=== PATIENT | female | born 1970 | race Caucasian/White ===

== ENCOUNTER 2018-10-02 15:27 | Emergency (ER) | payer OTHER ==
[~2018-10-02] VITALS: Ht 167.6 cm; Wt 97.9 kg
[2018-10-02 15:38] VITALS: Ht 167.6 cm; Wt 97.9 kg
--- NOTE | 2018-10-02 16:13 | ERD ---
ER Documentation Chief Complaint Chief Complaint HEADACHE, DIZZINESS HPI The patient is a 48-year-old female, presenting to the ER because she has had intermittent dizziness/headache since 2 PM yesterday, denies similar symptoms previously, symptoms previously, she is under a lot of stress at work. Denies syncope, near syncope, facial pain, neck pain, chest pain, dyspnea, abdominal pain, vomiting, complains of constipation. She does not smoke or drink Past medical history: Hypertension, diabetes mellitus, dyslipidemia, anxiety Past surgical history: Tubal Ligation ROS All systems reviewed and are negative except as per history of present illness. Medications Home Meds Active Scripts Meclizine Hcl* (Antivert*) 12.5 Mg Tab, 25 MG PO Q6H PRN for DIZZINESS, #20 TAB Prov:YUVAL MELO MD 10/02/18 Amoxicillin* (Amoxicillin*) 500 Mg Cap, 500 MG PO TID for 7 Days, CAP Prov:YUVAL MELO MD 10/02/18 Reported Medications Insulin Degludec (Tresiba Flextouch U-100) 100 Unit/1 Ml Insuln.pen, 50 UNIT SQ QHS 10/02/18 Insulin Lispro (Humalog Kwikpen U-100) 100 Unit/1 Ml Insuln.pen, 50 UNIT SQ WITH MEALS, EA 10/02/18 Gabapentin* (Gabapentin*) 300 Mg Capsule, 600 MG PO BID, #60 CAP 10/02/18 Famotidine* (Famotidine*) 20 Mg Tablet, 20 MG PO DAILY, #30 TAB 10/02/18 Gemfibrozil* (Gemfibrozil*) 600 Mg Tablet, 600 MG PO BID, TAB 10/02/18 Atorvastatin* (Atorvastatin*) 40 Mg Tablet, 40 MG PO QHS, #30 TAB 10/02/18 Sitagliptin Phos/Metformin HCl (Janumet 50-1,000 mg Tablet) 1 Each Tablet, 1 EACH PO BID, TAB 10/02/18 Losartan Potassium* (Losartan Potassium*) 50 Mg Tablet, 50 MG PO BID, TAB 10/02/18 Allergies Allergies: Coded Allergies: No Known Allergy (Unverified , 10/02/18) Physical Exam Vitals Vital Signs Date Temp Pulse Resp B/P (MAP) Pulse Ox O2 O2 Flow FiO2 Time Delivery Rate 10/02/18 77 16 134/74 98 Room Air 22:22 (94) 10/02/18 98.7 91 16 134/98 98 Room Air 18:04 (110) 10/02/18 98.7 102 16 181/119 98 Room Air 16:18 (139) 10/02/18 98.7 105 18 250/116 98 15:38 (160) Physical Exam Const: No acute distress. Head: Atraumatic. Eyes: Normal Conjunctiva. ENT: Normal External Ears, Nose and Mouth. Neck: Full range of motion. No meningismus. Resp: Clear to auscultation bilaterally. Cardio: Regular rate and rhythm. Abd: Soft, non distended, normal bowel sounds, non tender. Skin: No petechiae or rashes. Back: No midline or flank tenderness. Ext: No cyanosis, or edema. Neur: Awake and alert. No focal deficit Psych: Anxious Result Diagram: 10/02/18 1718 10/02/18 1718 Results 24 hrs Laboratory Tests Test 10/02/18 17:18 10/02/18 17:26 10/02/18 19:37 10/02/18 21:02 White Blood Count 9.6 10^3/ul Red Blood Count 4.75 10^6/ul Hemoglobin 13.4 g/dl Hematocrit 39.5 % Mean Corpuscular 83.2 fl Volume Mean Corpuscular 28.2 pg Hemoglobin Mean Corpuscular 33.9 g/dl Hemoglobin Concent Red Cell Distribution 12.6 % Width Platelet Count 325 10^3/UL Mean Platelet Volume 11.6 fl Immature Granulocytes 1.000 % % Neutrophils % 61.8 % Lymphocytes % 29.1 % Monocytes % 6.9 % Eosinophils % 0.8 % Basophils % 0.4 % Nucleated Red Blood 0.0 /100WBC Cells % Immature Granulocytes 0.100 10^3/ul # Neutrophils # 5.9 10^3/ul Lymphocytes # 2.8 10^3/ul Monocytes # 0.7 10^3/ul Eosinophils # 0.1 10^3/ul Basophils # 0.0 10^3/ul Nucleated Red Blood 0.0 10^3/ul Cells # Sodium Level 129 mmol/L Potassium Level 4.0 mmol/L Chloride Level 91 mmol/L Carbon Dioxide Level 25 mmol/L Anion Gap 13 Blood Urea Nitrogen 17 mg/dl Creatinine 0.74 mg/dl Est Glomerular Filtrat > 60 mL/min Rate mL/min Glucose Level 601 mg/dl Calcium Level 10.0 mg/dl Troponin I < 0.012 ng/ml POC Beta HCG, NEGATIVE Qualitative Bedside Glucose 423 mg/dL 397 mg/dL Current Medications Medications Dose Sig/Nadeen Start Time Status Last (Trade) Ordered Route PRN Stop Time Admin Dose Reason Admin Meclizine 25 mg ONCE ONCE 10/02/18 DC 10/02/18 HCl PO 17:30 10/02/18 18:01 (Antivert) 17:31 Sodium 1,000 ml @ Q1H ONCE 10/02/18 DC 10/02/18 Chloride 1,000 mls/hr IV 18:00 10/02/18 18:01 18:59 Insulin 10 unit ONCE ONCE 10/02/18 DC 10/02/18 Human SC 20:30 10/02/18 20:22 Lispro 20:31 (Humalog) Diagnostic 1 ea 2 HRS AFTER 10/02/18 DC 10/02/18 Test (Pha) HUMALOG ONCE 20:30 10/02/18 21:03 (Accu-Chek) XX 20:31 Procedures/[place] [id number] Radiology Main Line: [phone] DIAGNOSTIC IMAGING REPORT Patient: LOUIS ALVES : 1970 Age: 48 Sex: F MR #: [id number] DOS: 10/02/18 1703 Ordering MD: YUVAL MELO MD Location: E/R Room/Bed: PROCEDURE: Noncontrast CT Head. CLINICAL INDICATION: Dizziness. TECHNIQUE: Noncontrast CT of the head was obtained. The administered radiation dose was CTDI vol = 39.64 mGy, DLP = 624.23 mGy-cm. One or more of the following dose reduction techniques were used: Automated exposure control, Adjustment of the mA and/or kV according to patient size, or Use of iterative reconstruction technique. DICOM images are available. COMPARISON: Noncontrast CT of the head from December 14, 2016. FINDINGS: The ventricles and sulci are within normal limits. There is a coarse calcification within the right frontal lobe suggesting prior infectious/inflammatory etiologies such as neurocysticercosis. There is no loss of crockett-white differentiation to suggest acute territorial infarction. There is no acute intracranial hemorrhage or extra-axial fluid collection. There is no mass effect. No midline shift is identified. The orbits are within normal limits. There is a minimal left maxillary sinus air fluid level suggesting acute sinusitis. No destructive osseous lesion is identified. IMPRESSION: No significant change 1. No acute intracranial hemorrhage or extra-axial fluid collection. 2. Minimal left maxillary sinus air fluid level suggesting acute sinusitis. 3. Coarse calcification within the right frontal lobe suggesting prior infectious/inflammatory etiologies such as neurocysticercosis. Further findings as detailed above. RPTAT: HVF .Marcos Danielson MD, Date Time Electronically viewed and signed by .Marcos Danielson MD, MD on 10/02/2018 17:59 .F/ CC: YUVAL MELO MD [phone] [place] [id number] Radiology Main Line: [phone] DIAGNOSTIC IMAGING REPORT Patient: LOUIS ALVES : 1970 Age: 48 Sex: F MR #: [id number] DOS: 10/02/18 1703 Ordering MD: YUVAL MELO MD Location: E/R Room/Bed: PROCEDURE: XR Chest. CLINICAL INDICATION: Chest pain. TECHNIQUE: AP view of the chest was obtained. COMPARISON: 12/14/2006 FINDINGS: The cardiomediastinal silhouette is within normal limits. The lungs are clear. No signs of pleural fluid or pneumothorax are seen. The osseous structures and soft tissues are unremarkable. IMPRESSION: 1. No evidence for acute cardiopulmonary disease. RPTAT: HGAS .Ulisses Jordan MD, Date Time Electronically viewed and signed by .Ulisses Jordan MD, MD on 10/02/2018 17:39 .S/ CC: YUVAL MELO MD [phone] EKG: Read by emergency physician Rate/Rhythm: Normal Sinus Rhythm 90 beats/min QRS, ST, T-waves: No ST elevation, no T inversion Impression: Normal EKG MEDICAL MAKING DECISION: The patient is a 48-year-old female, presenting with acute dizziness of unclear etiology, acute sinusitis, acute hyperglycemia.. She was treated with Antivert 25 mg p.o. for acute dizziness, 1 L normal saline and Humalog 10 units subcutaneously for acute hyperglycemia. On multiple reevaluation, she felt well, is stable for outpatient follow-up Blood Pressure improved well without intervention the differential diagnoses considered include but are not limited to central causes such as cerebellar infarct, cerebellar hemorrhage, cerebellar tumor, acoustic neuroma, peripheral causes such as benign positional vertigo, labyrinthitis, medication, Meniere's disease, HHS, DKA, dietary/medical noncompl iance. Departure Diagnosis: Primary Impression: Dizziness Additional Impressions: Sinusitis Hyperglycemia Condition: Good Comments She was discharged with amoxicillin and Antivert I discussed the findings with the patient. I advised the patient to follow-up with the primary physician in about 2-3 days, sooner if needed and return if any concern. Disclaimer: Inadvertent spelling and grammatical errors are likely due to EHR/dictation software use and do not reflect on the overall quality of patient care. Also, please note that the electronic time recorded on this note does not necessarily reflect the actual time of the patient encounter. YUVAL MELO MD Oct 02, 2018 16:13
[2018-10-02] MEDS ORDERED: ATOR40TA68 PO (17:18)
[2018-10-02] MEDS ORDERED: LOSA50TA14 PO (17:18)
[2018-10-02] MEDS ORDERED: SITA1TAB5 PO (17:18)
[2018-10-02] MEDS ORDERED: FAMO20TA18 PO (17:19)
[2018-10-02] MEDS ORDERED: GEMF600T8 PO (17:19)
[2018-10-02] MEDS ORDERED: GABA300C16 PO (17:19)
[2018-10-02] MEDS ORDERED: INSU100I12 SQ (17:20)
[2018-10-02] MEDS ORDERED: INSU100I31 SQ (17:20)
[2018-10-02] MEDS ORDERED: MECLIZINE 12.5 MG TAB PO ONE (17:30)
[2018-10-02] MEDS ORDERED: SOD CHLORIDE 0.9% 1,000 ML IV ONE (18:00)
[2018-10-02] MEDS ORDERED: INSULIN LISPRO 100 UNIT/ML VIAL SC ONE (20:30)
[2018-10-02] MEDS ORDERED: ACCU-CHEK XX ONE (20:30)
[2018-10-02] MEDS ORDERED: MECL12.574 PO (22:02)
[2018-10-02] MEDS ORDERED: AMOX500C2 PO (22:02)
[2018-10-02 22:22] VITALS: BP 134/74; PULSE 77; RESP 16
== END 2018-10-02 22:23 | disposition home or self-care (01) ==
LOC: E/R 15:27
DX: J32.9 Chronic sinusitis, unspecified (principal); I10 Essential (primary) hypertension; E11.65 Type 2 diabetes mellitus with hyperglycemia; Z79.4 Long term (current) use of insulin
CPT/HCPCS: 36415; 70450; 71045; 80048; 81025; 82962; 84484; 85025; 93005; 96372; 99285; J1815; J7030